=== PATIENT | female | born 1960 | race African-American/Black ===

== ENCOUNTER 2018-04-09 08:54 | Emergency (ER) | payer BC ==
[2018-04-09 09:03] VITALS: BP 116/66; PULSE 64; TEMP 97.9; BMI 22.0
--- NOTE | 2018-04-09 09:48 | PDOC ---
History of Present Illness - General Chief Complaint: Cold Symptoms Stated Complaint: FEVER, HEADACHE Time Seen by Provider: 04/09/18 09:17 History Source: Patient, Family Exam Limitations: No Limitations - History of Present Illness Initial Comments: 04/09/18 09:49 Came to emergency department for evaluation of low back pain that started after the past few days of being ill with high fevers, cough, general body aches. 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 Is uncertain but thinks may have contracted influenza. States fever broke yesterday , return to work but since that time has had progressive acute on chronic back strain. Thinks may be related to the amount of coughing she has done the past few days. Has not taken any medication for relief of same. Denies numbness or tingling to toes, denies any fevers persistent, denies problems with bowel or bladder. 04/09/18 12:08 Timing/Duration: reports: getting worse, intermittent Severity: reports: mild, moderate Associated Symptoms: reports: denies symptoms, muscle aches, nasal congestion, sore throat. denies: chest pain/soreness, cough Past History - Travel Traveled outside of the country in the last 30 days: No Close contact w/someone who was outside of country & ill: No - Past Medical History Allergies/Adverse Reactions: Allergies Allergy/AdvReac Type Severity Reaction Status Date / Time No Known Allergies Allergy Verified 04/09/18 08:56 Home Medications: Ambulatory Orders NK [No Known Home Medication] 04/09/18 Anemia: No Asthma: No Cancer: No Cardiac Disorders: No CVA: No COPD: No CHF: No Dementia: No Diabetes: No GI Disorders: Yes (TUBULAR ADENOMA; HEMORROIDS) Disorders: No HTN: No Hypercholesterolemia: No Liver Disease: No Seizures: No Thyroid Disease: No - Immunization History Immunization Up to Date: Yes - Suicide/Smoking/Psychosocial Hx Smoking Status: Yes Smoking History: Current every day smoker Have you smoked in the past 12 months: Yes Number of Cigarettes Smoked Daily: 20 Information on smoking cessation initiated: No 'Breaking Loose' booklet given: 03/12/14 Hx Alcohol Use: No Drug/Substance Use Hx: No Substance Use Type: None Review of Systems - Review of Systems Able to Perform ROS?: Yes Is the patient limited [place]ian proficient: Yes Constitutional: Yes: Symptoms Reported, See HPI, Malaise HEENTM: Yes: See HPI, Nose Congestion, Throat Pain. No: Symptoms Reported Respiratory: Yes: Symptoms reported, See HPI, Cough. No: Wheezing ABD/GI: Yes: See HPI. No: Symptoms Reported : No: Symptoms Reported Musculoskeletal: Yes: Symptoms Reported, See HPI, Back Pain Integumentary: No: Symptoms Reported Neurological: Yes: Symptoms reported, See HPI, Headache All Other Systems: Reviewed and Negative *Physical Exam - Vital Signs Last Vital Signs Temp Pulse Resp BP Pulse Ox 97.9 F 64 16 116/66 100 04/09/18 08:57 04/09/18 08:57 04/09/18 08:57 04/09/18 08:57 04/09/18 08:57 - Physical Exam General Appearance: Yes: Nourished, Appropriately Dressed, Mild Distress HEENT: positive: TMs Normal (congested but landmarks easily visualized), Pharynx Normal, Nasal Congestion, Rhinorrhea (clear drainage), Sinus Tenderness. negative: Pharyngeal Erythema Neck: positive: Supple. negative: Tender Respiratory/Chest: positive: Lungs Clear. negative: Wheezing Musculoskeletal: negative: Normal Inspection Extremity: positive: Normal Inspection Integumentary: positive: Dry, Warm, Pale Neurologic: positive: applied researcher II-XII NML intact, Fully Oriented, Alert, Normal Mood/ Affect, Normal Response Moderate Sedation - Procedure Monitoring Vital Signs: Procedure Monitoring Vital Signs Temperature 97.9 F 04/09/18 08:57 Pulse Rate 64 04/09/18 08:57 Respiratory Rate 16 04/09/18 08:57 Blood Pressure 116/66 04/09/18 08:57 O2 Sat by Pulse Oximetry (%) 100 04/09/18 08:57 Progress Note - Progress Note Progress Note: NO Evidence of bacterial infection, will treat conservatively and given note for work for 2 days off. *DC/Admit/Observation/Transfer Diagnosis at time of Disposition: Generalized pain, Influenzal acute upper respiratory infection - Discharge Dispostion Disposition: HOME Condition at time of disposition: Stable Decision to Admit order: No - Referrals Referrals: Zulma Leos MD [Primary Care Provider] - - Patient Instructions Printed Discharge Instructions: DI for Viral Upper Respiratory Infection -- Adult Additional Instructions: Rest, drink lots of fluids: Teas, water, soups, Pedialyte Saltwater gargles Steamy showers/seem to face break up mucus Avoid contact with others until fevers and cough resolved Lots of handwashing and good hygiene Continue [id number] medications for symptomatic relief Tylenol or Motrin for fever and pain Followup with private physician in one to 2 days as needed Return to emergency department for worsened symptoms, fevers, dehydration - Post Discharge Activity Forms/Work/School Notes: Back to Work
== END 2018-04-09 09:55 | disposition home or self-care (01) ==
LOC: JERFT 08:54
DX: J11.1 Influenza due to unidentified influenza virus with other respiratory manifestations (principal)
CPT/HCPCS: 99281-25

== ENCOUNTER → 2020-03-29 | Day surgery (SDC) | payer BC | END | disposition home or self-care (01) | LOC: JRADUS-SUR 12:38 | PROVIDERS: ATTEND Family Medicine | PROC: 0H9T3ZX Drainage of Right Breast, Percutaneous Approach, Diagnostic (ICD-10-PCS; principal; 2020-03-29) | DX: N60.31 Fibrosclerosis of right breast (principal) | CPT/HCPCS: 19083; 87899; A4648 ==